=== PATIENT | female | born 1960 | race African-American/Black ===

== ENCOUNTER 2016-11-12 15:36 | Observation (INO) | payer BC ==
[2016-11-12 16:26] VITALS: BMI 37.3
--- NOTE | 2016-11-12 16:36 | PDOC ---
History of Present Illness - General Chief Complaint: Chest Pain Stated Complaint: PCP SENT Time Seen by Provider: 11/12/16 16:34 - History of Present Illness Initial Comments: 11/12/16 17:32 Patient is a 56-year-old female past medical history of hypertension, diabetes who presents to the emergency department today from her primary care doctor Dr. Quiroz, with a chief complaint of chest pain/pressure with associated shortness of breath for 3 weeks. She states that she is no longer able to walk as far she used 2 and gets very tired easily. She states that the pressure radiates across her chest and does not change when she takes a deep breath. So admits to palpitations. She is not taking any medication to help her tightness, and has never taken nitroglycerin. Denies fevers, chills, numbness, tingling, edema, nausea, vomiting and diarrhea. Past History - Travel Traveled outside of the country in the last 30 days: No Close contact w/someone who was outside of country & ill: No - Past Medical History Allergies/Adverse Reactions: Allergies Allergy/AdvReac Type Severity Reaction Status Date / Time lactose Allergy Mild Verified 11/12/16 16:26 Home Medications: Ambulatory Orders Glipizide 10 mg PO BID #0 08/14/13 Atenolol [Tenormin -] 25 mg PO DAILY 11/19/13 Atorvastatin Ca [Lipitor] 10 mg PO HS 11/12/16 Dulaglutide [Trulicity] 0.75 mg SQ WEEKLY 11/12/16 Lisinopril [Prinivil] 20 mg PO DAILY 11/12/16 Cardiac Disorders: Yes (MITRAL VALVE PROLAPSE) Diabetes: Yes HTN: Yes - Surgical History Cholecystectomy: Yes (JULY 2013) - Immunization History Immunization Up to Date: No - Psycho/Social/Smoking Cessation Hx Anxiety: No Suicidal Ideation: No Smoking Status: No Smoking History: Never smoked Have you smoked in the past 12 months: No Number of Cigarettes Smoked Daily: 0 Hx Alcohol Use: No Drug/Substance Use Hx: No Substance Use Type: None Review of Systems - Review of Systems Constitutional: No: Chills, Fever Respiratory: Yes: Shortness of Breath, SOB with Exertion. No: Cough, Wheezing Cardiac (ROS): Yes: Chest Pain, Palpitations, Chest Tightness. No: Edema, Lightheadedness, Syncope ABD/GI: No: Diarrhea, Nausea, Vomiting *Physical Exam - Vital Signs Last Vital Signs Temp Pulse Resp BP Pulse Ox 98.2 F 82 16 153/66 97 11/12/16 16:19 11/12/16 16:19 11/12/16 16:19 11/12/16 16:19 11/12/16 16:19 - Physical Exam Comments: 11/12/16 17:34 GENERAL: Well developed, well nourished. Awake and alert. No acute distress. HEENT: Normocephalic, atraumatic. PERRLA, EOMI. No conjunctival pallor. Sclera are non- icteric. Moist mucous membranes. Oropharynx is clear. NECK: Supple. Full ROM. No JVD. Carotid pulses 2+ and symmetric, without bruits. No thyromegaly. No lymphadenopathy. CARDIOVASCULAR: Regular rate and rhythm. No murmurs, rubs, or gallops. Distal pulses are 2+ and symmetric. PULMONARY: No evidence of respiratory distress. Lungs clear to auscultation bilaterally. No wheezing, rales or rhonchi. ABDOMINAL: Soft. Non-tender. Non-distended. No rebound or guarding. No organomegaly. Normoactive bowel sounds. MUSCULOSKELETAL Normal range of motion at all joints. No bony deformities or tenderness. No CVA tenderness. EXTREMITIES: No cyanosis. No clubbing. No edema. No calf tenderness. SKIN: Warm and dry. Normal capillary refill. No rashes. No jaundice. NEUROLOGICAL: Alert, awake, appropriate. Cranial nerves 2-12 intact. No deficits to light touch and temperature in face, upper extremities and lower extremities. No motor deficits in the in face, upper extremities and lower extremities. Normoreflexic in the upper and lower extremities. Normal speech. Toes are down- going bilaterally. Gait is normal without ataxia. PSYCHIATRIC: Cooperative. Good eye contact. Appropriate mood and affect. ED Treatment Course - LABORATORY CBC & Chemistry Diagram: 11/12/16 17:28 11/12/16 17:28 Medical Decision Making - Medical Decision Making 11/12/16 17:36 Patient is a 56-year-old female past medical history of hypertension, diabetes who presents to the emergency department today from her primary care doctor Dr. Quiroz, with a chief complaint of chest pain/pressure with associated shortness of breath for 3 weeks. At this time Dr. Quiroz is looking to place the patient in observation for further cardiac workup. 1.CBC, CMP, troponin, PT/INR, magnesium, 2.aspirin 161 3.EKG and chest x-ray 4.reevaluate 5.we'll place order for observation at this time. 11/12/16 17:36 EKG shows a rate of 74 normal intervals and normal axis, sinus rhythm no acute ST-T wave changes LVH *DC/Admit/Observation/Transfer Diagnosis at time of Disposition: Chest pain Qualifiers: Chest pain type: other chest pain Qualified Code(s): R07.89 - Other chest pain - Discharge Dispostion Admit: Yes
[2016-11-12] MEDS ORDERED: ASPIRIN 81 MG CHEWABLE TABLETS PO ONE (17:17)
--- NOTE | 2016-11-12 17:17 | PDOC ---
*Physical Exam - Vital Signs Last Vital Signs Temp Pulse Resp BP Pulse Ox 98.2 F 82 16 153/66 97 11/12/16 16:19 11/12/16 16:19 11/12/16 16:19 11/12/16 16:19 11/12/16 16:19 Medical Decision Making - Medical Decision Making 11/12/16 17:16 Pt seen by the Advanced Practice Provider under my direct supervision Ancillary studies reviewed I agree with plan as outlined by the Advanced Practice Provider CARLOS ALBERTO Batista *DC/Admit/Observation/Transfer Diagnosis at time of Disposition: Chest pain Qualifiers: Chest pain type: other chest pain Qualified Code(s): R07.89 - Other chest pain
[2016-11-12] MEDS ORDERED: ASPIRIN 81 MG CHEWABLE TABLETS ONE (17:47)
[2016-11-12 18:03] LABS: BASOPHIL 0.4 % (0-2.0); EOSINOPHIL 0.4 % (0-4.5); MCH 28.3 pg (25.7-33.7); MEAN CELL VOLUME 85.8 fl (80-96); MEAN PLT VOLUME 8.7 fl (7.5-11.1); NEUTROPHILS 71.9 % (42.8-82.8); PLATELET COUNT 240 K/MM3 (134-434); RDW 14.3 % (11.6-15.6); WHITE BLOOD COUNT 10.2 K/mm3 (4.0-10.0)
[2016-11-12 18:34] LABS: ALBUMIN 4.4 g/dl (3.4-5.0); ANION GAP 7 (8-16); BILIRUBIN,TOTAL 0.6 mg/dL (0.2-1.0); CALCIUM 9.5 mg/dL (8.5-10.1); CO2 30 mmol/L (21-32); CREATININE 0.6 mg/dL (0.55-1.02); GLUCOSE,RANDOM 73 mg/dL (74-106); MAGNESIUM 2.3 mg/dL (1.8-2.4); SGOT/AST 14 U/L (15-37); SGPT/ALT 27 U/L (12-78); TOT PROT 8.4 g/dl (6.4-8.2)
[2016-11-12 18:36] LABS: ALK PHOS 107 U/L (45-117); CPK 133 IU/L (26-192); TROPONIN I < 0.02 ng/ml (0.00-0.05)
[2016-11-12 19:16] LABS: INR 1.12 (0.82-1.09); PROTHROMBIN TIME (PATIENT) 12.4 SEC (9.98-11.88)
[2016-11-12] MEDS ORDERED: ATORVASTATIN CA 10 MG TABLET (FP) PO SCH (22:15)
[2016-11-13 01:28] LABS: CPK 103 IU/L (26-192); TROPONIN I < 0.02 ng/ml (0.00-0.05)
[2016-11-13] MEDS: INSULIN SLIDING SCALE (NOVOLOG) 1 VIAL SQ SCH ×3 (06:16→16:36)
[2016-11-13 07:45] LABS: BASOPHIL 0.5 % (0-2.0); EOSINOPHIL 0.4 % (0-4.5); MCH 28.9 pg (25.7-33.7); MEAN PLT VOLUME 8.5 fl (7.5-11.1); PLATELET COUNT 202 K/MM3 (134-434); RDW 14.2 % (11.6-15.6); WHITE BLOOD COUNT 9.1 K/mm3 (4.0-10.0)
[2016-11-13 08:33] LABS: ALBUMIN 3.4 g/dl (3.4-5.0); ALK PHOS 89 U/L (45-117); ANION GAP 7 (8-16); BILIRUBIN,TOTAL 0.5 mg/dL (0.2-1.0); CALCIUM 8.8 mg/dL (8.5-10.1); CO2 28 mmol/L (21-32); CPK 85 IU/L (26-192); CREATININE 0.5 mg/dL (0.55-1.02); FREE T4 1.12 ng/dl (0.76-1.46); GLUCOSE,RANDOM 63 mg/dL (74-106); SGOT/AST 11 U/L (15-37); SGPT/ALT 20 U/L (12-78); THYROID STIMULATING HORMONE 1.27 uIU/ml (0.358-3.74); TROPONIN I < 0.02 ng/ml (0.00-0.05)
[2016-11-13] MEDS: glipiZIDE 10 MG TABLET (FP) PO SCH ×2 (09:45→16:39)
[2016-11-13] MEDS ORDERED: ATENOLOL 25 MG TABLET (FP) PO SCH (10:00)
[2016-11-13] MEDS ORDERED: LISINOPRIL 20 MG TABLET (FP) PO SCH (10:00)
[2016-11-13] MEDS ORDERED: DIPYRIDAMOLE 50 MG/10 ML VIAL IVPB ONE ×2 (10:28→11:00)
--- NOTE | 2016-11-13 10:29 | HP ---
Admitting History and Physical - Primary Care Physician PCP: Florina Hunt - Admission Chief Complaint: chest pain and SOB History of Present Illness: Sent from office for chest pain and SOB for 3 weeks on ambulation. Denies any palpitations Currently has no chest pain History Source: Patient Limitations to Obtaining History: No Limitations - Past Medical History TMD TEACHER: Yes: Other (headaches) Cardiovascular: Yes: HTN Gastrointestinal: Yes: Other (gall stones) Infectious Disease: Yes: MRSA Endocrine: Yes: Diabetes Mellitus - Smoking History Smoking history: Never smoked Have you smoked in the past 12 months: No Aproximately how many cigarettes per day: 0 - Alcohol/Substance Use Hx Alcohol Use: No Home Medications - Allergies Allergies/Adverse Reactions: Allergies Allergy/AdvReac Type Severity Reaction Status Date / Time lactose Allergy Mild Verified 11/12/16 16:26 - Home Medications Home Medications: Ambulatory Orders Glipizide 10 mg PO BID #0 08/14/13 Atenolol [Tenormin -] 25 mg PO DAILY 11/19/13 Atorvastatin Ca [Lipitor] 10 mg PO HS 11/12/16 Dulaglutide [Trulicity] 0.75 mg SQ WEEKLY 11/12/16 Lisinopril [Prinivil] 20 mg PO DAILY 11/12/16 Review of Systems - Review of Systems Constitutional: denies: Chills, Fever Cardiovascular: reports: Chest Pain, Shortness of Breath. denies: Palpitations Respiratory: reports: Exercise Intolerance, SOB, SOB on Exertion. denies: Cough , Orthopnea Physical Examination Vital Signs: Vital Signs Temperature 98.0 F 11/13/16 02:00 Pulse Rate 65 11/13/16 02:00 Respiratory Rate 18 11/13/16 02:00 Blood Pressure 145/79 11/13/16 02:00 O2 Sat by Pulse Oximetry (%) 100 11/12/16 21:04 Constitutional: Yes: No Distress Cardiovascular: Yes: Regular Rate and Rhythm Respiratory: Yes: CTA Bilaterally Gastrointestinal: Yes: Normal Bowel Sounds, Soft, Abdomen, Obese. No: Tenderness Edema: No Labs: CBC, BMP 11/13/16 05:35 11/13/16 05:35 Imaging - Results Chest X-ray: Image Reviewed (no congestion) EKG: Image Reviewed Problem List - Problems (1) Chest pain Code(s): R07.9 - CHEST PAIN, UNSPECIFIED Qualifiers: Chest pain type: other chest pain Qualified Code(s): R07.89 - Other chest pain; R07.8 - Other chest pain (2) DM (diabetes mellitus) Code(s): E11.9 - TYPE 2 DIABETES MELLITUS WITHOUT COMPLICATIONS Qualifiers: Diabetes mellitus type: type 2 Diabetes mellitus complication status: without complication (3) HTN (hypertension) Code(s): I10 - ESSENTIAL (PRIMARY) HYPERTENSION Qualifiers: Hypertension type: essential hypertension Qualified Code(s): I10 - Essential (primary) hypertension (4) SOB (shortness of breath) on exertion Code(s): R06.02 - SHORTNESS OF BREATH Assessment/Plan PLAN Cardiac enzymes negative Stress test today Cardiology eval noted if stress test is negative, may dc home
[2016-11-13 11:06] VITALS: TEMP 98
--- NOTE | 2016-11-13 11:57 | CON.CARD ---
Cardiology Consult (text) - Consultation Consultation Note: cc: cp hpi: 56 f hx htn, hld, dm here with cp. Past few weeks pt has had mild central chest tightness with sob as well. No radiation. Occurs randomly each day. Sometimes at rest, sometimes with exertion. Lasts for minutes and resolves on own. No hx hrt dz. Came to ER for further eval. Feels well today , no cp. pmh: per hpi psh: nc social: no tob fam: no premature cad/scd ros: per hpi; no nvd, fever, cough, nasal congestion, BECK, vision changes, gib, hematuria, dysuria meds: Home Medications Medication Instructions Recorded Glipizide 10 mg PO BID #0 08/14/13 Atenolol [Tenormin -] 25 mg PO DAILY 11/19/13 Atorvastatin Ca [Lipitor] 10 mg PO HS 11/12/16 Dulaglutide [Trulicity] 0.75 mg SQ WEEKLY 11/12/16 Lisinopril [Prinivil] 20 mg PO DAILY 11/12/16 pe: Vital Signs Period Temp Pulse Resp BP Sys/Alejandre Pulse Ox Last 24 Hr 98 F-98.2 F 65-82 16-18 132-153/66-85 97-100 nad no jvd rrr s1s2 no mrg cta bl nl eff aaox3 no le e/c/c abd nt nd pos bs no jaundice diaphoresis +dp pt no carotid bruits Laboratory Last Values WBC 9.1 K/mm3 (4.0-10.0) 11/13/16 05:35 RBC 4.53 M/mm3 (3.60-5.2) 11/13/16 05:35 Hgb 13.1 GM/dL (10.7-15.3) 11/13/16 05:35 Hct 38.5 % (32.4-45.2) 11/13/16 05:35 MCV 85.0 fl (80-96) 11/13/16 05:35 MCH 28.9 pg (25.7-33.7) 11/13/16 05:35 MCHC 34.0 g/dl (32.0-36.0) 11/13/16 05:35 RDW 14.2 % (11.6-15.6) 11/13/16 05:35 Plt Count 202 K/MM3 (134-434) 11/13/16 05:35 MPV 8.5 fl (7.5-11.1) 11/13/16 05:35 Neutrophils % 70.0 % (42.8-82.8) 11/13/16 05:35 Lymphocytes % 23.6 % (8-40) 11/13/16 05:35 Monocytes % 5.5 % (3.8-10.2) 11/13/16 05:35 Eosinophils % 0.4 % (0-4.5) 11/13/16 05:35 Basophils % 0.5 % (0-2.0) 11/13/16 05:35 INR 1.12 (0.82-1.09) 11/12/16 17:28 Sodium 139 mmol/L (136-145) 11/13/16 05:35 Potassium 3.9 mmol/L (3.5-5.1) 11/13/16 05:35 Chloride 104 mmol/L (98-107) 11/13/16 05:35 Carbon Dioxide 28 mmol/L (21-32) 11/13/16 05:35 Anion Gap 7 (8-16) L 11/13/16 05:35 BUN 14 mg/dL (7-18) 11/13/16 05:35 Creatinine 0.5 mg/dL (0.55-1.02) L 11/13/16 05:35 Creat Clearance w eGFR > 60 (>60) 11/13/16 05:35 POC Glucometer 73 UNITS (()) 11/13/16 06:14 Random Glucose 63 mg/dL (74-106) L 11/13/16 05:35 Calcium 8.8 mg/dL (8.5-10.1) 11/13/16 05:35 Magnesium 2.3 mg/dL (1.8-2.4) 11/12/16 17:28 Total Bilirubin 0.5 mg/dL (0.2-1.0) 11/13/16 05:35 AST 11 U/L (15-37) L D 11/13/16 05:35 ALT 20 U/L (12-78) D 11/13/16 05:35 Alkaline Phosphatase 89 U/L (45-117) 11/13/16 05:35 Creatine Kinase 85 IU/L (26-192) 11/13/16 05:35 Troponin I < 0.02 ng/ml (0.00-0.05) 11/13/16 05:35 B-Natriuretic Peptide 43.59 pg/ml (5-125) 11/12/16 17:28 Total Protein 7.0 g/dl (6.4-8.2) 11/13/16 05:35 Albumin 3.4 g/dl (3.4-5.0) D 11/13/16 05:35 TSH 1.27 uIU/ml (0.358-3.74) 11/13/16 05:35 Free T4 1.12 ng/dl (0.76-1.46) 11/13/16 05:35 tele: sr ecg 11/12/16: sr, nl intervals, no ischemic changes, LVH cxr: clear lungs a/p: 56 f hx htn, hld, dm here with cp. cp, sob: -no signs chf -no signs acs, ce's neg x3, ecg w/o ischemic changes -pt has cad risk factors so will eval further with echo, mibi today-->if both benign then ok for dc from cardiac pov htn: -cont home meds hld: -cont statin
--- NOTE | 2016-11-13 13:03 | EKG ---
Test Reason : Blood Pressure : / mmHG Vent. Rate : 074 BPM Atrial Rate : 074 BPM P-R Int : 140 ms QRS Dur : 094 ms QT Int : 440 ms P-R-T Axes : 014 000 023 degrees QTc Int : 488 ms NORMAL SINUS RHYTHM VOLTAGE CRITERIA FOR LEFT VENTRICULAR HYPERTROPHY PROLONGED QT ABNORMAL ECG WHEN COMPARED WITH ECG OF 19-NOV-2013 12:49, NONSPECIFIC T WAVE ABNORMALITY NO LONGER EVIDENT IN LATERAL LEADS Confirmed by LATONIA NEGRON, ESA ([id number]) on 11/13/2016 1:02:43 PM Referred By: Confirmed By:ESA LINCOLN MD
[2016-11-13 14:54] VITALS: BP 153/74; PULSE 73
--- NOTE | 2016-11-13 16:15 | DS ---
Physical Examination Vital Signs: Vital Signs Temperature 98 F 11/13/16 14:00 Pulse Rate 73 11/13/16 14:00 Respiratory Rate 20 11/13/16 14:00 Blood Pressure 153/74 11/13/16 14:00 O2 Sat by Pulse Oximetry (%) 100 11/13/16 10:00 Constitutional: Yes: No Distress Cardiovascular: Yes: Regular Rate and Rhythm Respiratory: Yes: CTA Bilaterally Gastrointestinal: Yes: Normal Bowel Sounds, Soft, Abdomen, Obese. No: Tenderness, Other Edema: No Labs: CBC, BMP 11/13/16 05:35 11/13/16 05:35 Discharge Summary Reason For Visit: CHEST PAIN Current Active Problems Chest pain (Acute) DM (diabetes mellitus) (Acute) HTN (hypertension) (Acute) SOB (shortness of breath) on exertion (Acute) Hospital Course: chest pain and SOb Cardiac enzymes negative seen by Cardiology Stress test negative for ischemia-- stable for dc home Condition: Good - Instructions Disposition: HOME - Home Medications Comprehensive Discharge Medication List: Ambulatory Orders Glipizide 10 mg PO BID #0 08/14/13 Atenolol [Tenormin -] 25 mg PO DAILY 11/19/13 Atorvastatin Ca [Lipitor] 10 mg PO HS 11/12/16 Dulaglutide [Trulicity] 0.75 mg SQ WEEKLY 11/12/16 Lisinopril [Prinivil] 20 mg PO DAILY 11/12/16
== END 2016-11-13 18:27 | disposition home or self-care (01) ==
LOC: JER 15:36 → JERBED 16:57 → J4W 20:11
PROVIDERS: ADMIT Internal Medicine; ATTEND Internal Medicine
PROC: 3E033GC Introduction of Other Therapeutic Substance into Peripheral Vein, Percutaneous Approach (ICD-10-PCS; principal; 2016-11-12)
DX: R07.89 Other chest pain (principal); I10 Essential (primary) hypertension; I34.1 Nonrheumatic mitral (valve) prolapse; E11.9 Type 2 diabetes mellitus without complications; Z91.011 Allergy to milk products; Z86.14 Personal history of Methicillin resistant Staphylococcus aureus infection; Z87.19 Personal history of other diseases of the digestive system
CPT/HCPCS: 36415; 71020-TC; 78452-TC; 80053; 83735; 83880; 84439; 84443; 84484; 85025; 85610; 87081; 93005; 93010; 93017; 93306-TC; 99285-25; A9502; G0378

== ENCOUNTER 2017-04-24 10:13 | Day surgery (SDC) | payer BC ==
[2017-04-22 17:27] VITALS: BMI 40.9
[~2017-04-24 10:13] MED LIST: BUPIVACAINE HCL/PF 0.5% (5MG/ML) 10 ML VIAL IJ ONE
[2017-04-24] MEDS ORDERED: ROCURONIUM BROMIDE 50 MG/5 ML VIAL ONE ×2 (10:17→12:53)
[2017-04-24] MEDS ORDERED: MIDAZOLAM HCL 2 MG/2 ML SINGLE DOSE VIAL ONE (10:17)
[2017-04-24] MEDS ORDERED: PROPOFOL 20 ML ONE (10:17)
[2017-04-24] MEDS ORDERED: fentaNYL CITRATE 250 MCG/5 ML VIAL ONE (10:17)
[2017-04-24] MEDS ORDERED: LIDOCAINE HCL/PF 2% SDV 5ML VIAL ONE (12:02)
[2017-04-24] MEDS ORDERED: ceFAZolin SODIUM 1 GM VIAL IVPB ONE (12:10)
[2017-04-24] MEDS ORDERED: ceFAZolin SODIUM 1 GM VIAL ONE ×2 (12:20)
[2017-04-24] MEDS ORDERED: DEXAMETHASONE SOD PHOSPHATE 4 MG/1 ML VIAL ONE (12:36)
[2017-04-24] MEDS ORDERED: NEOSTIGMINE METHYLSULFATE 0.5 MG/ML - 10 ML MDV ONE (13:20)
[2017-04-24] MEDS ORDERED: BUPIVACAINE HCL/PF 0.5% (5MG/ML) 10 ML VIAL IJ ONE (13:20)
[2017-04-24] MEDS ORDERED: GLYCOPYRROLATE 0.2 MG/1 ML VIAL ONE ×2 (13:20)
[2017-04-24] MEDS ORDERED: ONDANSETRON 4 MG/2 ML VIAL IVPUSH PRN ×2 (13:35→13:52)
[2017-04-24] MEDS ORDERED: ENOXAPARIN NA (PORCINE) 40 MG/0.4 ML DISP.SYRIN SQ ONE ×2 (13:35→16:28)
[2017-04-24] MEDS ORDERED: PROMETHAZINE HCL 50 MG/1 ML AMP IM PRN (13:35)
[2017-04-24] MEDS ORDERED: HYDROmorphone HCL CARPU-JECT 1 MG/1 ML DISP.SYRIN IVPB PRN (13:36)
--- NOTE | 2017-04-24 13:40 | OP ---
Operative Note - Note: Operative Date: 04/24/17 Pre-Operative Diagnosis: Morbid Obesity. Diabetes Mellitus. Hypertension Operation: Laparoscopic Gastric Band. Diagnostic Laparoscopy Findings: 30 cc proximal gastric pouch created with APS Band Implants: Gastric Band plus sub-Q port Surgeon: Lev Thao Private Sector Executive: Cirilo Michael Anesthesia: General Estimated Blood Loss (mls): 30 Operative Report Dictated: Yes
[2017-04-24] MEDS ORDERED: SODIUM CHLORIDE 1,000 ML IV SCH (13:45)
[2017-04-24] MEDS ORDERED: HYDROmorphone HCL CARPU-JECT 1 MG/1 ML DISP.SYRIN IVPUSH PRN (13:52)
[2017-04-24] MEDS ORDERED: LACTATED RINGERS SOLUTION 1,000 ML IV SCH (14:00)
[2017-04-24] MEDS ORDERED: HYDROmorphone HCL CARPU-JECT 2 MG/1 ML DISP.SYRIN ONE (14:08)
[2017-04-24] MEDS ORDERED: FAMOTIDINE 20 MG/50 ML IVPB 20 MG/50 ML MG IVPB ONE (14:08)
[2017-04-24] MEDS ORDERED: ONDANSETRON 4 MG/2 ML VIAL IVPUSH ONE (14:10)
--- NOTE | 2017-04-24 14:10 | OP ---
Operative Note - Note: Operative Date: 04/24/17 Pre-Operative Diagnosis: S/p gastric band placement Operation: EGD/upper endoscopy Findings: No leak/obstruction Post-Operative Diagnosis: Same as Pre-op Surgeon: Cirilo Michael Anesthesia: General Specimens Removed: None Estimated Blood Loss (mls): 0 Operative Report Dictated: Yes
[2017-04-24] MEDS ORDERED: HYDROmorphone HCL CARPU-JECT 2 MG/1 ML DISP.SYRIN IVPUSH ONE ×3 (14:15→15:00)
[2017-04-24 14:42] LABS: HEMATOCRIT 39.6 % (32.4-45.2); HEMOGLOBIN 12.9 GM/dL (10.7-15.3); MCH 27.7 pg (25.7-33.7); MCHC 32.6 g/dl (32.0-36.0); MEAN CELL VOLUME 84.9 fl (80-96); MEAN PLT VOLUME 8.6 fl (7.5-11.1); PLATELET COUNT 237 K/MM3 (134-434); RBC 4.66 M/mm3 (3.60-5.2); RDW 14.2 % (11.6-15.6); WHITE BLOOD COUNT 12.7 K/mm3 (4.0-10.0)
[2017-04-24] MEDS ORDERED: FAMOTIDINE 20 MG PREMIXED IVPB IVPB ONE (15:00)
[2017-04-24 15:02] LABS: ANION GAP 9 (8-16); BLOOD UREA NITROGEN 13 mg/dL (7-18); CALCIUM 9.1 mg/dL (8.5-10.1); CHLORIDE 104 mmol/L (98-107); CO2 28 mmol/L (21-32); CREATININE 0.7 mg/dL (0.55-1.02); GLUCOSE,RANDOM 163 mg/dL (74-106); POTASSIUM 4.1 mmol/L (3.5-5.1); SODIUM 141 mmol/L (136-145)
--- NOTE | 2017-04-24 15:58 | OP ---
DATE OF OPERATION: 04/24/2017 PREOPERATIVE DIAGNOSIS: 1. Morbid obesity. 2. Diabetes mellitus. 3. Hypertension. POSTOPERATIVE DIAGNOSIS: 1. Morbid obesity. 2. Diabetes mellitus. 3. Hypertension. PROCEDURE PERFORMED: 1. Laparoscopic gastric band for gastric restriction. 2. Diagnostic laparoscopy. OPERATING SURGEON: Lauren Turner M.D. CABLE TELEVISION ACCESS COORDINATOR: Cirilo Michael M.D. ANESTHESIA: General. OPERATIVE PROCEDURE: The patient was brought into the operating room and was placed on the OR table in the supine position. All precautions were taken initially including padding for the back and the feet, and Venodyne boots were placed on both lower extremities. At that point, the abdomen was prepped and draped in the usual manner. A Veress needle was placed in the left upper quadrant, and a pneumoperitoneum was established. A number 12 bladeless trocar was placed in the left upper quadrant; through the trocar, laparoscopic camera was placed. Under direct vision, a number 5 and 15 bladeless trocar were placed in the right upper quadrant, and a number 12 bladeless trocar below the left costal margin. A Brenda liver retractor was then placed in the epigastrium to retract the left lobe of the liver. The patient was then placed in a 20-degree reverse Trendelenburg position. As the conference assistant surgeon retracted the omentum in the left upper quadrant inferiorly, the operating surgeon grabbed the stomach and pulled it toward the patient's right side. This exposed the left esophagogastric junction. Electrocautery was then used to score the peritoneum over the left esophagogastric junction and this continued superiorly until the left demetrius of the diaphragm was noted. At this point, the conference assistant surgeon retracted the stomach toward the patient's left side, and the operating surgeon found the cordate lobe of the liver. An opening was made in the avascular plane, and then attention was directed to the right crural muscle. The peritoneum anterior to it was scored with electrocautery, and a laparoscopic instrument was then used to make a blunt tunnel from the right to the left demetrius until it was free in the left upper quadrant of the abdomen. The gastric band, which was an AP standard band, was then prepped by the OR team and placed in the number 15 port site. The band tube was placed at the laparoscopic instrument, which was pulled and withdrawn to the patient's right side. The band tube was placed with the band buckle, which was tied or cinched down, and the band was rotated to the patient's right side. Laparoscopic instrument easily fit between the band and the anterior stomach wall. The band was then sewn in place with the Endo Stitch used to grab a bite of the stomach serosa above and below the band and tied over the band. When it was completed, the band tubing brought out number 15 port site and under direct vision all trocars were removed, and pneumoperitoneum was released. The number 15 port site was extended laterally and dissection continued down to the right anterior rectus muscle fascia. 2-0 Prolene sutures were placed on all 4 sides, and the port was then attached to right anterior rectus muscle. 2-0 Prolene was used to close the number 15 port site to prevent internal hernia. At that point, the number 15 port site was closed with 3-0 Vicryl in a subcutaneous fashion, then all trocars received 0.25% Marcaine, were closed with 4-0 Biosyn in a subcuticular fashion. Dressings were applied, patient awoken from anesthesia and transferred out of the operating room to recovery room in stable condition. Anesthesia in the case was general. Surgeon Dr. Turner. The conference assistant, Dr. Cirilo Michael. The expected blood loss was 30 mL. Patient transferred to recovery room in stable condition. ADDENDUM: Near the termination of the procedure, after the band was placed, Dr. Michael scrubbed out and performed an upper endoscopy, which will be described in his operative note. Thankfully, it showed the band was in good position with no signs of obstruction, as he easily transversed the band and got into the distal stomach. LAUREN TURNER M.D. [id number]
--- NOTE | 2017-04-24 16:01 | OP ---
DATE OF OPERATION: 04/24/2017 PREOPERATIVE DIAGNOSIS: Status post gastric band placement by Lev Thao M.D., rule out leak/obstruction. POSTOPERATIVE DIAGNOSIS: No leak, no obstruction . PROCEDURE: Upper endoscopy/esophagogastroduodenoscopy. SPECIMEN: None. ESTIMATED BLOOD LOSS: 0 mL. REASON FOR PROCEDURE: This 57-year-old female who is undergoing a laparoscopic gastric band placement by Dr. Lev Thao. There was a request for endoscopy to rule out leak and/or obstruction. DESCRIPTION OF PROCEDURE: The endoscope was inserted into patient's mouth. The esophagus, gastroesophageal junction, entirety of the stomach was inspected. No leak or obstruction was noted. The portion near the band was noted to have no obstruction. The stomach was suctioned, decompressed, and the endoscope fully removed. The remainder of the gastric band proceeded as usual. Please see Dr. Lev Thao's dictation for that report. Margy [id number]
[2017-04-24 16:36] VITALS: TEMP 98
[2017-04-24 18:25] VITALS: BP 146/74; PULSE 89
[2017-04-24] MEDS ORDERED: FAMOTIDINE 20 MG/50 ML IVPB 20 MG/50 ML MG IVPB SCH (22:00)
== END 2017-04-24 18:30 | disposition home or self-care (01) ==
LOC: JASU-SURG 10:13
PROVIDERS: ATTEND Surgery
PROC: 0DJ08ZZ Inspection of Upper Intestinal Tract, Via Natural or Artificial Opening Endoscopic (ICD-10-PCS; 2017-04-24)
PROC: 0DV64CZ Restriction of Stomach with Extraluminal Device, Percutaneous Endoscopic Approach (ICD-10-PCS; principal; 2017-04-24 11:00)
DX: E66.01 Morbid (severe) obesity due to excess calories (principal); E11.9 Type 2 diabetes mellitus without complications; I10 Essential (primary) hypertension
CPT/HCPCS: 43235; 43770; L8699; 36415; 74241-TC; 80048; 82962; 85027; 86850; 86900; 86901; 94760